=== PATIENT | male | born 1960 | race Caucasian/White ===

== ENCOUNTER 2016-08-02 10:45 | Emergency (ER) | payer OTHER ==
[~2016-08-02] VITALS: Ht 182.9 cm; Wt 120.2 kg
--- NOTE | 2016-08-02 11:19 | ER.PDOC ---
General Chief Complaint: Extremities Stated Complaint: KNEE INJURY Time seen by MD: 10:50 Source: patient Exam Limitations: no limitations History of Present Illness Initial Comments Patient jumped out of a pickup bed yesterday evening. He landed on his feet but felt pain in the left medial knee. He is unsure of any twisting of the knee. The pain is medial and inferior and he has increased pain with moving the knee laterally to get out of the car Occurred: just prior to arrival Where: home Severity: mild Injuries/Pain Location: lower extremity Loss of Consciousness: No Loss of Consciousness Allergies: Coded Allergies: No Known Allergies (Unverified , 08/02/16) Past Medical History Medical History: cancer, cardiac problems, hypertension Surgical History: cardiac cath, cancer surgery, coronary bypass surgery, stent Social History Smoking: non-smoker Alcohol Use: rarely Drug Use: none Physical Exam General Appearance: No Apparent Distress Head: No Evidence of Injury Eyes: bilateral eye normal inspection Ears, Nose, Mouth, Throat: Hearing Grossly Normal, No Evidence of ENT Injury, No Dental Injury Neck: Non-Tender, Normal Alignment, Nexus criteria neg, Normal Inspection Extremities: Other 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 Lateral laxity with pain. EKG/XRAY/CT/US XRAY: knee XRAY Comments: No acute abnormalities Departure Time of Disposition: 12:18 Disposition: 01 HOME, SELF-CARE Impression: Primary Impression: Knee pain, acute Condition: Stable Referrals: INES PAYAN MD Comments Patient given crutches, knee immobilizer, and tramadol for pain. He is to follow up with Dr. Payan in 5-7 days. Weight bear as tolerated MADHURI RAIN MD August 02, 2016 11:19
--- NOTE | 2016-08-02 11:30 | PRM.ACF1 ---
Admission Criteria Forms MUSCULOSKELETAL DISEASE [facility] Clinical Indications for Admission to Inpatient Care (Place 'X' for any and all applicable criteria): Hospital admission is needed for appropriate care of the patient because of 1 or more of the following: [X ]I. Fracture, dislocation, or other musculoskeletal injury requiring inpatient care(medical) as indicated by 1 or more of the following(4)(5)(6)(7) [ ]a) Vertebral fracture requiring observation for instability or neurologic compromise (8) [ ]b) Compartment syndrome (proven or cannot be ruled out during observation level of care) (9) [ ]c) Limb-threatening injury [ ]d) Major injury requiring inpatient stabilization such as traction initiation or external fixation before internal fixation or closure of complex or open fracture [ ]e) Major injury requiring inpatient treatment after emergency or observation level care (as appropriate) [X ]f) Severe pain requiring acute inpatient management [ ]g) Injury with suspicion of abuse or neglect (eg., child, dependent elderly) [ ]II. Newly diagnosed or suspected bone, joint, or orthopedic device infection (e.g., osteomyelitis, septic arthritis) needing 1 or more of the following(1)(2)(3) [ ]a) IV antibiotics that cannot be initiated in other than inpatient setting (e.g., patient too unstable or home infusion not available) [ ]b) Device removal or replacement [ ]c) Bone or soft tissue debridement [ ]d) Joint drainage (drain placement or repetitive aspirations) [ ]III. Severe rheumatologic disease (e.g., systemic lupus erythematosus, rheumatoid arthritis) with complications or comorbidities (Also use Optimal Recovery Care Criteria or General Recovery Criteria as appropriate on the basis of predominant condition), including 1 or more of the following( 10)(11)(12)(13) [ ]a) Severe infection (e.g., TIP FINISHER infection, sepsis) (14) [ ]b) Respiratory complications, including 1 or more of the following : [ ]i) Pleural effusion with respiratory compromise [ ]ii) Pulmonary hypertension with congestive failure [ ]iii) Respiratory failure [ ]iv) Pulmonary hemorrhage (15) [ ]c) Hematologic disease, including 1 or more of the following: [ ]i) Coagulopathy with bleeding [ ]ii) Thrombosis with hypercoagulable state [ ]iii) Thrombotic thrombocytopenic purpura [ ]d) Cerebritis with seizures, psychosis, or other severe abnormalities [ ]e) Vertebral destruction with monitoring needed for cervical myelopathy& possible respiratory compromise [ ]f) Exacerbation that requires inpatient treatment (e.g., intravenous immunosuppression) (16) [ ]g) Acute renal failure [ ]h) Cerebritis with seizures, psychosis, Altered mental status, or other neurologic abnormalities [ ]i) Pericardial effusion with tamponade [ ]j) Vertebral destruction, with monitoring needed for cervical myelopathy and possible respiratory compromise [ ]IV. Severe vasculitis with complications or comorbidities (Also use Optimal Recovery Care Criteria General Recovery Criteria as appropriate on the basis of predominant condition), including 1 or more of the following(11)(12)(17)(18)(19)(20) [ ]a) Exacerbation that requires inpatient treatment (e.g., intravenous immunosuppression) (19)(21) [ ]b) Pulmonary hemorrhage (15) [ ]c) TIP FINISHER vasculitis with seizures, psychosis, Altered mental status that is severe or persistent, or other severe abnormalities (22) [ ]d) Cerebral infarction [ ]e) Gastrointestinal ischemia [ ]f) Gangrene or threatened amputation [ ]g) Renal failure (16) [ ]h) Other significant complications of vasculitis ( eg., tissue or organ ischemia, organ dysfunction ) [ ]V. Severe myopathy as indicated by 1 or more of the following (28)(29) [ ]a) New onset of airway compromise or inability to swallow [ ]b) Respiratory deterioration with observation needed for impending respiratory failure [ ]c) Exacerbation that requires inpatient treatment (e.g., intravenous immunosuppression) [ ]. Severe crystal gout (arthropathy) indicated by 1 or more of the following (23)(24) [ ]a) Severe pain requiring acute inpatient management [ ]b) Exacerbation that requires inpatient treatment (e.g., intravenous treatment) [ ]VII.Rhabdomyolysis and 1 or more of the following (25)(26)(27) [ ]a) Acute renal failure [ ]b) Need for intravenous hydration after emergency or observation level care (as appropriate) [ ]c) Inability to maintain oral hydration [ ]d) Change in mental status [ ]e) Electrolyte abnormality that remains after emergency or observation level care (as appropriate) [ ]VIII Post amputation complication, as indicated by ANY ONE of the following [ ]a) Infection [ ]b) Dehiscence [ ]c) Myodesis failure [ ]IX. Severe pain requiring acute inpatient management due to musculoskeletal condition [ ]X. Musculoskeletal Disease and ALL of the following: [ ]a) Symptom or finding for which emergency and observation care have failed or are not considered appropriate (Use General Criteria: Observation Care as appropriate) [ ]b) Presence of ANY ONE of the following [ ]i) A General Admission Criteria [ ]ii) A Pediatric General Admission Criteria The original [employer] [facility] [employer] content created by [employer] [facility] [employer] has been revised. The portions of the content which have been revised are identified through the use of italic text or in bold, and [facility] has neither reviewed nor approved the modified material. All other unmodified content is copyright [facility] [employer]. Please see references footnoted in the original [facility] [employer] edition 2016 Is [facility]/[employer] added/comple: YES TARA ANNE [facility] August 02, 2016 11:30
--- NOTE | 2016-08-02 11:54 | DIREP ---
PROCEDURE:XRAY KNEE 1-2 VWS-LT COMPARISON:None. INDICATIONS:LEFT MEDIAL KNEE PAIN S/P INJURY FINDINGS: BONES:Mild marginal osteophyte formation off of the lateral femoral condyle and lateral tibial plateau. Enthesophyte formation in the superior patella. JOINTS:Normal. SOFT TISSUES:Small ossific densities in the distal patellar tendon. OTHER:No additional findings. CONCLUSION:No acute abnormalities. Mild osteoarthritic change in the lateral femorotibial compartment. Dictated by: Jerome Pittman M.D. on 08/02/2016 at 11:51 AM
== END 2016-08-02 12:38 | disposition home or self-care (01) ==
LOC: ER 10:45
DX: M25.562 Pain in left knee (principal); I10 Essential (primary) hypertension; Z85.9 Personal history of malignant neoplasm, unspecified; X58.XXXA Exposure to other specified factors, initial encounter; Y93.39 Activity, other involving climbing, rappelling and jumping off; Y92.009 Unspecified place in unspecified non-institutional (private) residence as the place of occurrence of the external cause; Y99.8 Other external cause status
CPT/HCPCS: 99284; 73560-LT